=== PATIENT | male | born 1950 | race Caucasian/White ===

== ENCOUNTER → 2016-06-13 | Outpatient (CLI) | payer BC ==
[~2016-06-13] MED LIST: ASPI-232 PO; CANA1TAB3 PO; GLC500 PO; GLY/5 PO; PRVC/10 PO
[2016-06-13 10:59] LABS: CHOLESTEROL/HDL RATIO 2.7
[2016-06-16 14:39] LABS: HEPATITIS C RNA TMA QUAL Not detected
== END | disposition home or self-care (01) ==
LOC: C.LAB 09:32
PROVIDERS: ATTEND Family Medicine
DX: E78.00 Pure hypercholesterolemia, unspecified (principal)

== ENCOUNTER → 2016-08-18 | Outpatient (CLI) | payer BC ==
[2016-08-18 10:32] LABS: ESTIMATED AVERAGE GLUCOSE 143 mg/dl; HA1C FLAG Normal (Normal)
[2016-08-18 11:01] LABS: ALB/GLOB RATIO 1.3 (0.9-2); ALKALINE PHOSPHATASE 55 U/L (45-117); ALT/SGPT 26 U/L (12-78); AST/SGOT 21 U/L (15-37); BLOOD UREA NITROGEN 21 mg/dl (7-18); BUN/CREATININE RATIO 18.8 (10-20); CALCIUM 8.9 mg/dl (8.5-10.1); CARBON DIOXIDE 27 mmol/L (21-32); CHLORIDE 108 mmol/L (98-107); CHOLESTEROL 111 mg/dl (0-200); CHOLESTEROL/HDL RATIO 2.4; GLUCOSE 46 mg/dl (70-99); HDL CHOLESTEROL 46 mg/dl; LDL CHOLESTEROL CALCULATED 51 mg/dl; POTASSIUM 4.2 mmol/L (3.5-5.1); SODIUM 142 mmol/L (136-145); TRIGLYCERIDES 68 mg/dl (0-150); VERY LOW DENSITY LIPOPROT CALC 14 mg/dl
[2016-08-18 11:56] LABS: RATIO 10.8 mcg/mg (0-30.0)
== END | disposition home or self-care (01) ==
LOC: C.LAB 09:02
PROVIDERS: ATTEND Family Medicine
DX: E11.65 Type 2 diabetes mellitus with hyperglycemia (principal); N40.1 Benign prostatic hyperplasia with lower urinary tract symptoms; Z12.5 Encounter for screening for malignant neoplasm of prostate

== ENCOUNTER → 2017-01-03 | Outpatient (CLI) | payer OTHER ==
[2017-01-03 11:08] LABS: ESTIMATED AVERAGE GLUCOSE 157 mg/dl; HA1C FLAG Normal (Normal)
== END | disposition home or self-care (01) ==
LOC: C.LAB1850 09:56
PROVIDERS: ATTEND Physician Assistant
DX: E11.9 Type 2 diabetes mellitus without complications (principal)

== ENCOUNTER → 2017-02-20 | Outpatient (CLI) | payer OTHER ==
[2017-02-20 13:16] LABS: CHOLESTEROL/HDL RATIO 2.5
== END | disposition home or self-care (01) ==
LOC: C.LABPVFM 08:13
PROVIDERS: ATTEND Family Medicine
DX: E78.00 Pure hypercholesterolemia, unspecified (principal)

== ENCOUNTER → 2017-06-14 | Outpatient (CLI) | payer OTHER ==
[2017-06-14 13:18] LABS: HEMOGLOBIN A1C 7.9 % (4.5-5.6)
== END | disposition home or self-care (01) ==
LOC: C.LABPVFM 08:25
PROVIDERS: ATTEND Physician Assistant
DX: E78.00 Pure hypercholesterolemia, unspecified (principal); E11.9 Type 2 diabetes mellitus without complications

== ENCOUNTER → 2017-06-27 | Outpatient (CLI) | payer OTHER ==
[2017-06-27 17:45] LABS: BASO % 0.4 %; BASO ABS # 0.03 K/uL (0-0.2); EOS % 3.5 %; EOS ABS # 0.29 K/uL (0-0.5); HEMATOCRIT 42.3 % (42-52); HEMOGLOBIN 15.3 g/dL (14.0-18.0); IG# 0.02 K/uL (0.00-0.02); LYMPH % 21.7 %; LYMPH ABS # 1.81 K/uL (1.2-3.4); MEAN CELL VOLUME 90.2 fL (80-100); MEAN CORPUSCULAR HEMOGLOBIN 32.6 pg (25-34); MEAN CORPUSCULAR HGB CONC 36.2 g/dl (32-36); MEAN PLATELET VOLUME 9.5 fL (7.4-10.4); MONO % 8.9 %; MONO ABS # 0.74 K/uL (0.11-0.59); NEUT % 65.3 %; NEUT ABS # 5.44 K/uL (1.4-6.5); PLATELET COUNT 225 K/uL (130-400); RED CELL DISTRIBUTION WIDTH SD 42.4 fL (36.4-46.3); WHITE BLOOD COUNT 8.33 K/uL (4.8-10.8)
[2017-06-27 18:12] LABS: ALBUMIN 3.6 gm/dl (3.4-5.0); AST/SGOT 15 U/L (15-37); BLOOD UREA NITROGEN 19 mg/dl (7-18); CALCIUM 9.4 mg/dl (8.5-10.1); CARBON DIOXIDE 28 mmol/L (21-32); CREATININE 1.16 mg/dl (0.60-1.40); GLUCOSE 185 mg/dl (70-99); POTASSIUM 3.9 mmol/L (3.5-5.1); SODIUM 136 mmol/L (136-145)
[2017-06-27 18:16] LABS: ALKALINE PHOSPHATASE 89 U/L (45-117); ALT/SGPT 22 U/L (12-78); TOTAL PROTEIN 7.7 gm/dl (6.4-8.2)
== END | disposition home or self-care (01) ==
LOC: C.LAB 16:52
PROVIDERS: ATTEND Neuromusculoskeletal Medicine & OMM
DX: R53.83 Other fatigue (principal); Z68.41 Body mass index [BMI] 40.0-44.9, adult; E11.9 Type 2 diabetes mellitus without complications

== ENCOUNTER → 2017-07-05 | Outpatient (CLI) | payer OTHER ==
--- NOTE | 2017-07-06 14:02 | MYOCARDIAL PERFUSION SCAN ---
ONE-DAY NUCLEAR MEDICINE TECHNETIUM-99M CARDIOLITE MYOCARDIAL PERFUSION SCAN CLINICAL HISTORY: This stress test is being performed because of complaints of shortness of breath and fatigue. COMPARISON: None. TECHNIQUE: TECHNIQUE: For the stress portion of the study, 33.0 mCi of Technetium 99 m Cardiolite IV was injected at 11:15 a.m. on 07/05/2017. Fifteen minutes following the injection, imaging of the heart was performed in multiple projection. For the rest portion of the study, 11.4 mCi of Technetium 99 m Cardiolite was injected IV at 9:25 a.m. One hour following the injection, imaging of the heart was performed in the same projections. EXERCISE TREADMILL TESTING: The patient exercised for 5 minutes on a standard Lazarus protocol attaining 7 METS and a peak heart rate of 144 beats per minute (92% predicted maximum). The test was terminated due to fatigue and shortness of breath. The patient did not experience chest discomfort. Initial blood pressure 144/92 and this increased to 172/88 at peak exertion. Baseline EKG notes normal sinus rhythm with an incomplete right bundle branch block. There were no ST segment changes seen with exercise over this baseline abnormality. There were no dysrhythmias. FINDINGS: The short axis, vertical long axis, and horizontal long axis images were reviewed in detail. There is normal myocardial perfusion uptake at both stress and rest. This excludes a prior myocardial infarction and evidence of stress induced myocardial ischemia. The left ventricle demonstrates normal systolic function with an ejection fraction of 59%. There are no wall motion abnormalities. CONCLUSIONS: 1. No scintigraphic evidence of a prior myocardial infarction or stress induced myocardial ischemia. 2. No exercise induced chest pain. 3. No echocardiogram changes over the baseline abnormality. 4. Normal left ventricular systolic function with an ejection fraction of 59% and no wall motion abnormalities.
== END | disposition home or self-care (01) ==
LOC: C.NUCL 09:03
PROVIDERS: ATTEND Neuromusculoskeletal Medicine & OMM
DX: R53.83 Other fatigue (principal); E11.9 Type 2 diabetes mellitus without complications; Z68.41 Body mass index [BMI] 40.0-44.9, adult